=== PATIENT | female | born 1965 | race Caucasian/White ===

== ENCOUNTER 2022-03-28 04:17 | Emergency (ER) | payer OTHER, SELFPAY ==
[2022-03-28] VITALS (50 sets, daily range): BP systolic 101–144; BP diastolic 59–83; PULSE 74–106; RESP 5–26; TEMP 36.6–37.4; O2SAT 92–100
--- NOTE | 2022-03-28 04:45 | DI.RAD_ITS ---
Exam(s) XR PORTABLE CHEST AP EXAM: XR PORTABLE CHEST AP CLINICAL HISTORY: cough, wheeze, eval for pneumonia TECHNIQUE: 2D digital imaging was performed of the chest. One image was obtained. An AP view was ob tained. COMPARISON: No exams were available for comparison FINDINGS: MEDIASTINUM: Normal. HEART: Normal. PULMONARY VASCULATURE: Normal. LUNGS: Clear. PLEURAL SPACE: No pleural effusion or pneumothorax. BONE:Within normal limits for the patient's age. OTHER FINDINGS:Normal. IMPRESSION: No acute pulmonary findings. DATA REPOSITORY: RADIATION DOSE DELIVERED:
--- NOTE | 2022-03-28 04:59 | ED.GENADUL_ITS ---
Discharge Plan Disposition Patient Disposition: HOME Condition: Good Discharge Details Clinical Impression: RSV bronchitis, Community acquired pneumonia Primary Care Provider: Jadon Zarate ED Provider: Noah Schwarz Home Meds and New Rx's Prescriptions: New prednisone 50 mg tablet 50 mg PO DAILY Qty: 5 0RF doxycycline hyclate 100 mg tablet 100 mg PO BID Qty: 20 0RF Discharge Instructions Instructions: Community Acquired Pneumonia (ED) Additional Instructions: At this time your testing has returned positive for respiratory syncytial virus. This likely began your symptoms but now I believe you have a component of bacterial pneumonia. Please take the antibiotic as directed. Make sure to take it with food otherwise it will cause nausea and vomiting. Please avoid any dairy products while taking the medication or calcium supplements as this will decrease the effectiveness of the antibiotic. Please take the inhaler, 2 puffs every 12 hours for the next 7 days. Please take the steroid as directed to also help with your asthma/reactive airway disease. These medications have been sent to your pharmacy on file. If you notice any worsening of your symptoms, or any new symptoms such as vomiting, diarrhea, fever, chills, shortness of breath, chest pain, numbness, weakness, or fainting , please return immediately to the emergency department for reevaluation. Please follow up with your primary care provider as soon as possible for reassessment and reevaluation. As always, it was a pleasure participating in your medical care today. Referrals: Jadon Zarate, [employer] OFFICER [Primary Care Provider] - Medical Decision Making This is a pleasant 56-year-old female with no significant past medical who does smoke 5 cigarettes a day who presents today for evaluation of cough for the past week. She states there have been multiple other sick contacts at home. Her grandchild has RSV currently. She has taken a home COVID test and this was negative. She denies any hemoptysis. She denies any history of asthma or COPD. She does not have any inhalers at home. She denies any chest pain. She states the cough is worsening and not improving with time. She admits to intermittent chills but no fever. No other complaints at this time. No other modifying factors Physical exam demonstrates well-appearing female, oxygenation is in the mid to low 90s. Lung sounds demonstrate diffuse wheezes throughout. Patient otherwise stable. Suspect component of asthma in conjunction with potential bronchitis or pneumonia. We will give breathing treatment, give oral steroids, plan for Symbicort at home, test for flu/COVID/RSV, monitor closely and reassess 6:07 AM On reassessment patient feels much better. Wheezes have improved. Oxygenation remains excellent. Patient would like to go home. She feels comfortable. RSV is positive. Flu and COVID are negative. I suspect she still does have mild community-acquired pneumonia as well from a bacterial perspective. We will send a prescription of doxycycline and prednisone to her pharmacy. We will give Symbicort inhaler here. Patient stable for discharge. Discussed red flags which to return. I have extensively reviewed the treatment plan and discharge instructions with the patient. I have addressed all patient concerns at this time. The patient was made aware of what symptoms to monitor for that would warrant a return to the emergency department. Discussed the plan with the stacey choi, they demonstrate verbal understanding and agreement with our assessment and plan at this time. The documentation in this chart was dictated using [employer] dictation software. Please excuse any dictation errors. HPI General Date/Time Provider Initiated Documentation: 03/28/22 04:40 . HPI Narrative: This is a pleasant 56-year-old female with no significant past medical who does smoke 5 cigarettes a day who presents today for evaluation of cough for the past week. She states there have been multiple other sick contacts at home. Her grandchild has RSV currently. She has taken a home COVID test and this was negative. She denies any hemoptysis. She denies any history of asthma or COPD. She does not have any inhalers at home. She denies any chest pain. She states the cough is worsening and not improving with time. She admits to intermittent chills but no fever. No other complaints at this time. No other modifying factors Related Data Home Medications Medication Instructions Recorded Confirmed doxycycline hyclate 100 mg tablet 100 mg PO BID #20 tabs 03/28/22 prednisone 50 mg tablet 50 mg PO DAILY #5 tabs 03/28/22 Previous Rx's Medication Instructions Recorded doxycycline hyclate 100 mg tablet 100 mg PO BID #20 tabs 03/28/22 prednisone 50 mg tablet 50 mg PO DAILY #5 tabs 03/28/22 Allergies Allergy/AdvReac Type Severity Reaction Status Date / Time No Known Allergies Allergy Verified 03/28/22 04:34 General Stated Complaint: RespSymp SHAWNA: 3 Review of Systems All systems reviewed & are unremarkable except as noted in HPI and below PFSH All Active Problems (Updated 03/28/22 @ 05:54 by Noah Schwarz DO) RSV bronchitis (Acute) Community acquired pneumonia (Acute) Obesity (BMI 30.0-34.9) (Acute) Surgical History History of tonsillectomy Family History Mother Depression Heart disease Father Depression Hypertension Sister Depression Sister Depression Son No problems noted. Son No problems noted. Son No problems noted. Social History Smoking/Tobacco Use Status: Current-Occasional Tobacco Type: cigarettes Tobacco: How many years used: 6 Quit status: not considering quitting Second Hand Exposure: Yes Smoking risk assessment performed?: Yes Alcohol Intake: current Alcohol Intake frequency: holidays/special occasions only Alcohol type: wine Drug use: Never Substance use type: does not use Caregiver/Support person: No Household members: spouse Housing: house Communication Needs: None Pets and animals: Yes Pets and animals: dog(s) and farm animals Sexually active: Yes Do you think of yourself as: straight/heterosexual Current gender identity: female What is your relationship status?: How often do you talk on the phone with friends or family?: three or more times per week How often do you attend orthodoxy or anabaptism services?: decline to answer Do you belong to any clubs or organized social groups?: no Panel score (0-1 are the most socially isolated patients): 2 What type of physical activity do you participate in: walking Duration: 15-30 minutes/day Frequency: 1-2 times per week Tea/Sikhism: Islam Special tea needs: No Seatbelt use: always Drive intox or ride w/intox dedicated truck driver: No Do you feel safe at home: Yes Do you feel safe in your relationship?: Yes Exam Narrative Exam Narrative: 1.Const: Well-nourished, Well-developed, appearing stated age 2.Eyes: PERRL, no conjunctival injection, and symmetrical lids. 3.ENT: Atraumatic external nose and ears. Moist MM. Neck: Symmetric, trachea midline, No thyromegaly. 4.CVS: +S1/S2, No murmurs or gallops. Peripheral pulses 2+ and equal in all extremities. Brisk capillary refill in all extremities. 5.RESP: Diffuse wheezes throughout, no significant rhonchi or rales 6.GI: Soft, Nontender/Nondistended, No hepatosplenomegaly. No guarding or rebound. 7.MSK: Normocephalic/Atraumatic, Extremities w/o deformity or ttp No cyanosis or clubbing, Normal movement of all extremities 8.Skin: Warm, Dry. No rashes or lesions. 9.Neuro: economic analysis director II-XII grossly intact. Sensation grossly intact, no focal neurologic deficits. 10.Psych: (AAO) x3. Appropriate mood and affect Course Vital Signs Vital signs: Vital Signs Temperature 37.4 C 03/28/22 04:34 Pulse 100 H 03/28/22 04:34 Respiratory Rate 26 H 03/28/22 04:34 Blood Pressure 144/81 H 03/28/22 04:34 Temperature 37.4 C 03/28/22 04:34 Temperature Source Temporal Artery Scan 03/28/22 04:34 Pulse 100 H 03/28/22 04:34 Respiratory Rate 26 H 03/28/22 04:34 Respiratory Effort Non-Labored 03/28/22 04:41 Respiratory Depth Normal 03/28/22 04:41 Blood Pressure 144/81 H 03/28/22 04:34 Blood Pressure Position Sitting 03/28/22 04:34 Oxygen Delivery Method Room Air 03/28/22 04:34 Oxygen Flow Rate 0 03/28/22 04:34 Pain Level 3 03/28/22 04:34 PAWSS Have you Been Recently Intoxicated or Drunk Within the Last 30 days?: Yes Have you Ever Experienced Previous Episodes of Alcohol Withdrawal?: No Have you ever Experienced Withdrawal Seizures?: No Have you ever Experienced Delirium Tremens(DT)s?: No Have you ever undergone Alcohol Rehabilitation Treatment (i.e, inpt ot outpatient treatment programs)?: No Have you ever Experienced Blackouts?: No Have you ever Combined Alcohol with other Downers within the last 90 days?: No Have you ever Combined Alcohol with any other Substance of Abuse during the last 90 days?: No Positive Blood Alcohol level on Presentation? [PCS.BAL]: No Evidence of Increased Autonomic Activity (i.e. HR>120, tremor, sweating, agitation, nausea)?: No Result: 1
[2022-03-28] MEDS: Albuterol/Ipratropium 3 ML UPD VIAL UPD (05:12)
[2022-03-28] MEDS: predniSONE 20 MG TAB 60 MG PO (05:13)
[2022-03-28 05:43] LABS: COVID-19 PCR Negative (Negative); Influenza A PCR Negative (Negative); Influenza B PCR Negative (Negative)
[2022-03-28 05:46] LABS: Source Nasopharynx
[2022-03-28 05:48] LABS: RSV PCR Positive (Negative)
[2022-03-28] MEDS: Budesonide/Formoterol 160/4.5 6 GM 60 PUFF INH IH (05:56)
--- NOTE | 2022-03-28 06:16 | DI.VRAD_ITS ---
PROCEDURE INFORMATION: Exam: XR Chest Exam date and time: 03/28/2022 4:51 AM Age: 56 years old Clinical indication: Cough and wheezing and other: Cough, wheeze, eval for pneumonia TECHNIQUE: Imaging protocol: Radiologic exam of the chest. Views: 1 view. COMPARISON: No relevant prior studies available. FINDINGS: Lungs: No pneumonia. No pulmonary edema. Pleural spaces: No pleural effusion. No pneumothorax. Heart/Mediastinum: Cardiac size not enlarged. Central vessels unremarkable. Vasculature: Aorta normal caliber. Bones/joints: Visualized osseous structures are unremarkable. IMPRESSION: No acute intrathoracic process Dictated and Authenticated by: Pelon Miguel MD. Ordering:MARISSA Zamora MD
== END 2022-03-28 06:08 | disposition home or self-care (01) ==
PROVIDERS: Emergency Provider Student in an Organized Health Care Education/Training Program; PCP Nurse Practitioner Family
DX: J20.5 Acute bronchitis due to respiratory syncytial virus (principal); J18.9 Pneumonia, unspecified organism; F17.210 Nicotine dependence, cigarettes, uncomplicated; Z20.822 Contact with and (suspected) exposure to COVID-19
CPT/HCPCS: 87637; 94640; 99284; 71045; J7512; J7620

== ENCOUNTER 2023-06-29 06:57 | Day surgery (SDC) | payer OTHER, SELFPAY ==
--- NOTE | 2023-06-28 10:28 | W.COLOREPORT ---
Date of service: 06/29/23 Time of Service: 08:54 Colonoscopy Report Date of procedure: 06/29/23 Pre-op diagnosis general: Colorectal cancer screening Post-op diagnosis procedure note: other (External hemorrhoids) Surgeon: Dayan Padron Anesthesia Type: General LMA/ETT Estimated blood loss (mL): 0 Pathology: none sent Complications: None Disposition: same day Prep: Miralax/Dulcolax Retraction Time: 11 Procedure Description: After informed consent was obtained the patient was taken to the procedure room and placed in a left decubitous position. Monitors were applied and a time out was done. The patients name, date of , procedure, allergies to medications and metal in their body was reviewed. The patient was then sedated. Once sedated and comfortable a rectal exam was done. External exam: Small nonthrombosed external hemorrhoid internal exam revealed a normal sphincter tone and no palpable masses. The scope was then introduced and retrofelexed. No internal hemorrhoids were identified. The scope was then advanced to the cecum without difficulty. The TI and appendiceal orifice were identified. The prep was BBPS 3 in all segments for a total of 9. The scope was then slowly retracted over 11 minutes back into the rectum. There are no polyps/AVM/diverticula visualized today. The mucosa is pink and healthy with a normal vascular pattern. The scope was removed and the patient was woken up and taken back to Same day surgery in stable condition. The patient tolerated the procedure well and there were no immediate complications. Follow up: The patient should follow up in 10 years unless they develop changes in bowel habits or other new gastrointestinal complaints.
--- NOTE | 2023-06-28 10:29 | PDOC.DSDIS_ITS ---
Date of service: 06/29/23 Time of Service: 08:56 Discharge Plan Disposition Patient Disposition: Home Condition: Good Discharge Details Reason For Visit: Colorectal cancer screening Attending Provider: Dayan Padron Primary Care Provider: Jadon Zarate Home Meds and New Rx's Prescriptions: Discontinued bisacodyl [Dulcolax (bisacodyl)] 5 mg tablet,delayed release (DR/EC) 5 mg PO ONCE Qty: 4 0RF Rx Instructions: Take per colonoscopy instructions provided by ordering providers office polyethylene glycol 3350 17 gram/dose powder 17 g PO ONCE Qty: 238 0RF Rx Instructions: Take per colonoscopy instructions provided by ordering providers office Discharge Instructions Additional Instructions: DSU Colonoscopy Post- Op Instructions Instructions for Everyone who is given Anesthesia: For your safety, please do the following for the next twenty-four (24) hours: *Do Not operate a motor vehicle (car, truck, motorcycle, etc.) *Do Not drink alcoholic beverages or use any recreational drugs for the first 24 hours or while taking pain medications. The medications in your body may have a reaction that can be dangerous. *Do Not make any important decisions or sign any important papers. Findings: normal scope Follow up: Repeat in 10 yrs time. Of course, you should continue to have a yearly physical exam including a rectal exam. If you should ever notice any pain or difficulty having a bowel movement, blood in the stool, unexplained weight loss, or change in your bowel habits, please contact your health provider 1. No lifting over 20 pounds or strenuous activity for the first 24 hours after your procedure. After 24 hours there are no restrictions on your activity but you may feel fatigued for a few days. 2. After you arrive home you may have a light meal and return to your normal diet as you can tolerate it without feeling sick to your stomach. 3. You may have a bloated, gaseous feeling in your belly (abdomen) after a colonoscopy. Passing gas and belching will help. Walking or lying down on your left side with your knees flexed may relieve the discomfort. Call the office at [phone] (Office) or [phone] (Hospital) right away if you notice any of the following: a.Vomiting of blood or ?coffee ground stools?. b.Rectal bleeding 1Tbsp, blood clots or continuous bleeding. c.Severe belly (abdominal) pain. d.A hard distended belly (abdomen) and an inability to pass gas. 4. Please don?t expect to have a normal BM (bowel movement) for 2-3 days after your procedure. 5. If there are questions regarding the findings of your procedure, please contact your doctor 6. If you are unable to contact your doctor with a problem, contact the hospital at [phone]. 7. Continue all your regular medications unless directed otherwise. I understand the above instructions and have no questions. Signature of Patient or Adult Escort Name of Responsible Adult Escort Signature of Nurse Date/Time Activity:: See above Diet:: see above Discharge Orders Discharge Orders: Discharge Order (Routine); Ordered 06/29/23 Ordered By: Dayan Padron DS: Diagnosis Discharge Diagnosis (1) Screening for malignant neoplasm of colon performed: Status: Acute (2) Obesity (BMI 30.0-34.9): Status: Acute (3) External hemorrhoid: Status: Acute
[2023-06-29 07:24] VITALS: BP 145/89; PULSE 90; RESP 16; TEMP 36.7; O2SAT 97
[2023-06-29] MEDS: Lactated Ringers 1,000 ML 80 ML IV (07:27)
--- NOTE | 2023-06-29 08:17 | ANES.PREOP_ITS ---
General Info Date of Service Date Performed: 06/29/23 Height: 5 ft 4 in Weight: 87.8 kg Body Mass Index (BMI): 33.2 Surgical Procedure: Operation Date: 06/29/23 08:20 Proposed Procedure Side Surgeon annetta Padron DO Meds Allergies and Home Medications Allergies Allergy/AdvReac Type Severity Reaction Status Date / Time No Known Allergies Allergy Verified 06/29/23 07:11 Current Visit Medications: Current Medications Generic Name Dose Route Start Last Admin Trade Name Freq PRN Reason Stop Dose Admin Hyoscyamine Sulfate 0.125 mg 06/29/23 03:38 Hyoscyamine 0.125 Mg Sl/Oral/Chew SL 07/29/23 03:37 DIRECTED PRN Ringer's Solution 1,000 mls @ 80 mls/hr 06/29/23 06:00 06/29/23 07:27 IV 06/29/23 23:59 80 mls/hr INFUSION GRACE Administration IV Miscellaneous Supplies 1 each 06/29/23 06:00 Iv Access IV 06/29/23 23:59 DIRECTED GRACE Ondansetron HCl 4 mg 06/29/23 03:38 Ondansetron 4 Mg/2 Ml Vial IVP 07/29/23 03:37 Q4H PRN PRN Nausea / Vomiting Sodium Chloride 0 ml 06/29/23 06:00 Normal Saline Flush 10 Ml Syr IV 06/29/23 23:59 PRN PRN Sodium Chloride 0 ml 06/29/23 06:00 Normal Saline 10 Ml Vial IJ 06/29/23 23:59 DIRECTED PRN Sterile Water 0 ml 06/29/23 06:00 Water,Injection,Sterile 10 Ml Vial IJ 06/29/23 23:59 DIRECTED PRN PFSH Active Problems Active Problems: Problem Status Onset Code Screening for malignant neoplasm of colon performed Z12.11 Obesity (BMI 30.0-34.9) E66.9 Surgical History Surgical History History of tonsillectomy Tobacco Smoking/Tobacco Use Status: Current-Occasional Tobacco Type: cigarettes and e- cigarettes Passive smoking exposure: Yes Second hand exposure: Yes Alcohol Alcohol Intake: never Substance Use Substance use: Never Substance use type: does not use Vital Signs and Lab Results Vital Signs Most Recent Vital Signs in EMR: Most Recent Vital Signs Temp Pulse Resp BP Pulse Ox 36.7 C 90 16 145/89 H 97 06/29/23 07:24 06/29/23 07:24 06/29/23 07:24 06/29/23 07:24 06/29/23 07:24 Lab Results Blood Type / Crossmatch: No Data to Display Complete Blood Count: No Data to Display Complete Metabolic Panel: No Data to Display Liver Function Panel: No Data to Display Coagulation Panel: No Data to Display Cardiac Panel: No Data to Display Arterial Blood Gas: No Data to Display Venous Blood Gas: No Data to Display Pancreas Panel: No Data to Display Thyroid Panel: No Data to Display Infectious Disease: No Data to Display Blood Cultures: No Data to Display Toxicology Panel: No Data to Display Anesthesia Assessment and Plan Anesthesia History Personal History: No History of Anesthesia Complications Family History: No Family History of Anesthesia Complications Exercise Tolerance Exercise Tolerance: Metabolic Equivalents>4 Pertinent Negatives Pertinent Negatives: No Symptoms of GERD Cardiac & Pulmonary Exam Cardiac Exam: Normal S1/S2 Heart Sounds Pulmonary Exam: Clear Bilateral Breath Sounds Implantable Cardiac Device Does patient have a Pacemaker or an ICD?: No Airway Exam Known Difficult Airway: No Mallampati Class: 2 Mouth Opening: Normal (> 3cm) Thyromental Distance: Greater than 3 cm Neck Range of Motion: Full ROM Neck Circumference: Normal Teeth Condition: Normal Dentition ASA Classification ASA Score: ASA 2 Emergency Case?: No NPO Status NPO Status: NPO Clears >2 hours, Solids >8 hours Anesthesia Plan Resuscitation Status: Full Code Anesthesia Technique: General Anesthesia Airway Planned: Natural Airway Monitors Used: Standard Monitors
[2023-06-29 08:18] VITALS: BMI 33.2
[2023-06-29 08:50] VITALS: BP 107/76; PULSE 87; RESP 16; TEMP 36.5; O2SAT 95
--- NOTE | 2023-06-29 08:52 | W.ANESPOSTOP ---
Postoperative Evaluation Date, Time and Location Date Performed: 06/29/23 Time Performed: 08:53 Patient Location: Day Surgery Unit Vital Signs Most Recent Imported Vital Signs: Most Recent Vital Signs Temp Pulse Resp BP Pulse Ox 36.7 C 90 16 145/89 H 97 06/29/23 07:24 06/29/23 07:24 06/29/23 07:24 06/29/23 07:24 06/29/23 07:24 Pain Score Most Recent Pain Score: Most Recent Pain Score Pain Level 0 06/29/23 07:24 Assessment Mental Status: Awake (Alert & Oriented to Patient Baseline) Airway and Respiratory Function: Patent airway with normal (patient baseline) respiratory exam Cardiovascular Function: Hemodynamically Stable Hydration Status: Adequately Hydrated Nausea & Vomiting: No Nausea or Vomiting Pain: Pt. Denies Any Pain Peripheral Nerve Block: Patient did not receive a nerve block
[2023-06-29 09:20] VITALS: BP 177/77; PULSE 64; RESP 18; TEMP 36.5; O2SAT 97
== END 2023-06-29 09:45 | disposition home or self-care (01) ==
LOC: SUR 06:58
PROVIDERS: PCP Nurse Practitioner Family; Visit Provider Surgery
PROC: 0DJD8ZZ Inspection of Lower Intestinal Tract, Via Natural or Artificial Opening Endoscopic (ICD-10-PCS; CPT 45378; principal; 2023-06-29 08:15)
DX: Z12.11 Encounter for screening for malignant neoplasm of colon (principal); K64.4 Residual hemorrhoidal skin tags; E66.9 Obesity, unspecified
CPT/HCPCS: 45378; J2704

== ENCOUNTER 2024-06-13 09:21 | Outpatient (REF) | payer OTHER, SELFPAY ==
--- NOTE | 2024-06-13 09:00 | PAPFT_PTH ---
PATIENT: Mendy Morgan LOC: [facility] U#:[id number] AGE/SX: 58/F ROOM: RE06/13/[address]: [place] Leonardo DO : 1965 BED: DIS: 06/13/2024 SPEC #: [id number] RECD: 06/13/24 13:16 STATUS: MOY REQ #: [id number] APURVA: 06/13/24 09:[address]: Albania Leonardo DEPT: [facility] Cytology RECD BY: Roxy Boyd ENTERED: 06/13/24 13:16 SP TYPE: PAPFT OTHR DR: Jadon Zarate, ADÁN Tissues: 1 - CX/ENDOCX FOR PAP SMEARS Procedures: PAP THIN PREP/[facility] Screening HPV DNA PROBE Comments: [id number] (HPV 16 & 18/45)
== END 2024-06-13 09:22 | disposition home or self-care (01) ==
LOC: LBN 09:21
PROVIDERS: PCP Nurse Practitioner Family; Visit Provider Obstetrics & Gynecology
DX: Z12.39 Encounter for other screening for malignant neoplasm of breast (principal); Z01.419 Encounter for gynecological examination (general) (routine) without abnormal findings
CPT/HCPCS: 88142; 87624

== ENCOUNTER 2024-07-04 00:50 | Outpatient (CLI) | payer OTHER, SELFPAY ==
--- OUTSIDE RECORDS SUMMARY | 2024-07-04 00:55 | XMS_ITS | Encounter Summary ---
Author Organization [facility] Address [address] [place] [address] Care Team Providers Care Volcanology Teacher Name Role Phone Unavailable Primary Care Provider Unavailabl e Encounter Details Date Type Department Care Team (Late st Contact Info) Description 06/17/2024 Lab Requisition [facility] Pathology & Laboratory Medicine - [facility] [address] [place] [address] [place]ia Leonardo [address] [place] [address] [place] [address] Encounter for other general examination Social History Tobacco Use Types Packs/Day Years Used Date Smoking Tobacco: Never Assessed Comments Unknown Sex and Gender Information Value Date Recorded Sex Assigned at Not on file Legal Sex Female 9:50 EST Gender Identity Not on file Sexual Orientation Not on file documented as of this encounter Plan of Treatment Not on file documented as of this encounter Procedures Procedure Name Priority Date/Time Associated Diagnosis Comments PAP TEST Today 06/13/2024 9:00 EST Encounter for other general examination HPV DNA DETECTION WITH GENOTYPING, PCR Today 06/13/2024 9:00 EST Encounter for other general examination documented in this encounter Results * HPV DNA DETECTION WITH GENOTYPING, PCR (06/13/2024 9:00 EST) HPV High Risk type 16, PCR Negative Negative 06/19/2024 15:11 EST [facility] HPV High Risk type 18, PCR Negative Negative 06/19/2024 15:11 EST [facility] HPV other High Risk types, PCR Negative Negative 06/19/2024 15:11 EST [facility] Comment: The following Other High Risk HPV types were not detected: ??31,33, 35, 39, 45, 51, 52, 56, 58, 59, 66 and 68. Pap Test CERVIX UTERI STRUCTURE / Unknown 06/13/2024 9:00 EST 06/18/2024 13:14 EST us [place] Leonardo MICROBIOLOGY - GENERAL ORDERABLE S Final Result [facility] [address] [place] [address] * PAP TEST (06/13/2024 9:00 EST) Specimens A. Cervix and/or Endocervix , ThinPrep Imaging System with Manual Evaluation 06/19/2024 15:11 [facility] Specimen Adequacy Satisfactory for Evaluation - transformation zone component present 06/19/2024 15:11 [facility] General Categorization Negative for intraepithelial lesion or malignancy 06/19/2024 15:11 [facility] Attestation . 06/19/2024 15:11 [facility] at 1511 Clinical History See below 06/19/19 15:11 [facility] Performing Lab [facility] 06/19/2024 15:11 [facility] Scanned Images 06/19/2024 15:11 [facility] HPV High Risk type 16, PCR Negative 06/19/2024 15:11 [facility] HPV High Risk type 18, PCR Negative 06/19/2024 15:11 [facility] HPV Other High Risk Types, PCR Negative The following Other High Risk HPV types were not detected: 31,33, 35, 39, 45, 51, 52, 56, 58, 59, 66 and 68. 06/19/2024 15:11 [facility] Pap Test CERVIX UTERI STRUCTURE / Unknown 06/13/2024 9:00 EST 06/17/2024 9:52 EST us [place] Leonardo PATHOLOGY ORDERABLES Final Resul t [facility] [address] [place] [address] documented in this encounter Visit Diagnoses Diagnosis Encounter for other general examination documented in this encounter
--- OUTSIDE RECORDS SUMMARY | 2024-07-04 00:55 | XMS_ITS | Referral Summary ---
Author Organization [facility] Address [address] [place] [address] Care Team Providers Care Tier Truck Driver Name Role Phone Unavailable Primary Care Provider Unavailabl e Encounters Date Type Department Care Team Description 06/17/2024 Lab Requisition [facility] Pathology & Laboratory Medicine - [facility] [address] [place] [address] [place] Leonardo Encounter for other general examination from Last 3 Months Social History Tobacco Use Types Packs/Day Years Used Date Smoking Tobacco: Never Assessed Comments Unknown Sex and Gender Information Value Date Recorded Sex Assigned at Not on file Legal Sex Female 9:50 EST Gender Identity Not on file Sexual Orientation Not on file Plan of Treatment Not on file Procedures Procedure Name Priority Date/Time Associated Diagnosis Comments PAP TEST Today 06/13/2024 9:00 EST Encounter for other general examination HPV DNA DETECTION WITH GENOTYPING, PCR Today 06/13/2024 9:00 EST Encounter for other general examination from Last 3 Months Results * PAP TEST (06/13/2024 9:00 EST) Specimens A. Cervix and/or Endocervix , ThinPrep Imaging System with Manual Evaluation 06/19/2024 15:11 [facility] Specimen Adequacy Satisfactory for Evaluation - transformation zone component present 06/19/2024 15:11 [facility] General Categorization Negative for intraepithelial lesion or malignancy 06/19/2024 15:11 [facility] Attestation . 06/19/2024 15:11 [facility] at 1511 Clinical History See below 06/19/19 15:11 [facility] Performing Lab [facility] 06/19/2024 15:11 [facility] Scanned Images 06/19/2024 15:11 [facility] HPV High Risk type 16, PCR Negative 06/19/2024 15:11 [facility] HPV High Risk type 18, PCR Negative 06/19/2024 15:11 [facility] HPV Other High Risk Types, PCR Negative The following Other High Risk HPV types were not detected: 31,33, 35, 39, 45, 51, 52, 56, 58, 59, 66 and 68. 06/19/2024 15:11 [facility] Pap Test CERVIX UTERI STRUCTURE / Unknown 06/13/2024 9:00 EST 06/17/2024 9:52 EST us [place] Leonardo PATHOLOGY ORDERABLES Final Resul t Performing Organization Address [facility] Co de Phone Number [facility] [address] [place] [id number] * HPV DNA DETECTION WITH GENOTYPING, PCR (06/13/2024 9:00 EST) HPV High Risk type 16, PCR Negative Negative 06/19/2024 15:11 [facility] HPV High Risk type 18, PCR Negative Negative 06/19/2024 15:11 [facility] HPV other High Risk types, PCR Negative Negative 06/19/2024 15:11 [facility] Comment: The following Other High Risk HPV types were not detected: ??31,33, 35, 39, 45, 51, 52, 56, 58, 59, 66 and 68. Pap Test CERVIX UTERI STRUCTURE / Unknown 06/13/2024 9:00 EST 06/18/2024 13:14 EST us [place] Leonardo MICROBIOLOGY - GENERAL ORDERABLE S Final Result Performing Organization Address [facility]/ZIP Co de Phone Number [facility] [address] [place] [address] from Last 3 Months
--- OUTSIDE RECORDS SUMMARY | 2024-07-04 00:55 | XMS_ITS | Clinical Summary ---
Author Organization [facility] Address [address] [place] [address] Care Team Providers Care Furniture Delivery Driver Name Role Phone Unavailable Primary Care Provider Unavailabl e Encounters Date Type Department Care Team Description 06/17/2024 Lab Requisition [facility] Pathology & Laboratory Medicine - [facility] [address] [place] [address] [place] Leonardo Encounter for other general examination from Last 3 Months Social History Tobacco Use Types Packs/Day Years Used Date Smoking Tobacco: Never Assessed Comments Unknown Sex and Gender Information Value Date Recorded Sex Assigned at Not on file Legal Sex Female 9:50 EST Gender Identity Not on file Sexual Orientation Not on file Plan of Treatment Health Maintenance Due Date Last Done Comments Hepatitis C Screen 1965 COVID-19 Vaccine (2023- season) 2024 RSV Immunization ( o r 60+ Years) (1 - 1-dose 75+ series) 12/09/2038 Procedures Procedure Name Priority Date/Time Associated Diagnosis Comments PAP TEST Today 06/13/2024 9:00 EST Encounter for other general examination HPV DNA DETECTION WITH GENOTYPING, PCR Today 06/13/2024 9:00 EST Encounter for other general examination from Last 3 Months Results * PAP TEST (06/13/2024 9:00 EST) Specimens A. Cervix and/or Endocervix , ThinPrep Imaging System with Manual Evaluation 06/19/2024 15:11 [facility] Specimen Adequacy Satisfactory for Evaluation - transformation zone component present 06/19/2024 15:11 [facility] General Categorization Negative for intraepithelial lesion or malignancy 06/19/2024 15:11 [facility] Attestation . 06/19/2024 15:11 [facility] at 1511 Clinical History See below 06/19/19 15:11 [facility] Performing Lab [facility] 06/19/2024 15:11 [facility] Scanned Images 06/19/2024 15:11 [facility] HPV High Risk type 16, PCR Negative 06/19/2024 15:11 [facility] HPV High Risk type 18, PCR Negative 06/19/2024 15:11 [facility] HPV Other High Risk Types, PCR Negative The following Other High Risk HPV types were not detected: 31,33, 35, 39, 45, 51, 52, 56, 58, 59, 66 and 68. 06/19/2024 15:11 [facility] Pap Test CERVIX UTERI STRUCTURE / Unknown 06/13/2024 9:00 EST 06/17/2024 9:52 EST [employer]orden PATHOLOGY ORDERABLES Final Resul t [facility] [address] [place] [address] * HPV DNA DETECTION WITH GENOTYPING, PCR (06/13/2024 9:00 EST) HPV High Risk type 16, PCR Negative Negative 06/19/2024 15:11 [facility] HPV High Risk type 18, PCR Negative Negative 06/19/2024 15:11 [facility] HPV other High Risk types, PCR Negative Negative 06/19/2024 15:11 [facility] Comment: The following Other High Risk HPV types were not detected: ??31,33, 35, 39, 45, 51, 52, 56, 58, 59, 66 and 68. Pap Test CERVIX UTERI STRUCTURE / Unknown 06/13/2024 9:00 EST 06/18/2024 13:14 EST us [place] Leonardo MICROBIOLOGY - GENERAL ORDERABLE S Final Result [facility] [address] [place] [address] from Last 3 Months
--- NOTE | 2024-07-04 12:32 | DI.MAMMO_ITS ---
Exam(s) MAMMO SCREENING EXAM: MAMMO SCREENING CLINICAL HISTORY: screening. TECHNIQUE: Bilateral full field digital CC and MLO mammographic images were obtained with 3D tomosyn thesis and utilizing computer aided detection (CAD). COMPARISON: Prior outside mammograms were reviewed. Prior outside ultrasound reviewed FINDINGS: No new significant mammographic findings in the right breast In the left breast on the MLO view there is a E is round nodular density measuring 10 x 11 mm and loc ated approximately 7 cm in from the nipple. This has decreased in size from prior outside mammograms and most probably corresponds to 1 of this cyst described on prior outside ultrasound. There are no new spiculated masses nor new malignant appearing microcalcification groups. There is no significant architectural distortion nor skin thickening-retraction. IMPRESSION: Benign findings. No radiographic evidence of malignancy. BI-RADS Category 2 - Benign Findings Breast Density - Category B - Scattered areas of fibroglandular density Breast density Category C or D implies that the patient has dense breast tissue. Dense breast tissue can make it harder to find cancer on a mammogram. Dense breast tissue is also associated with an incr eased risk of breast cancer. This information about the result of the mammogram report was provided to the patient to raise their awareness. Use this report when you speak with the patient about their risks for breast cancer, which includes their family history. At that time, you may recommend additional screening tests (Ultrasoun d or MRI) as these tests may add significant information. A negative radiographic report should not delay biopsy if a dominant or clinically suspicious mass is present. Up to ten percent of cancers are not identified on mammography. A negative report may reinforce clinical impression. Adenosis and dense breasts may obscure an underlying neoplasm. False positive reports average 6 to 10%. Patient will receive a letter notifying them of these results.
== END 2024-07-04 01:10 ==
LOC: DI 00:50
PROVIDERS: PCP Nurse Practitioner Family; Visit Provider Obstetrics & Gynecology
DX: Z12.31 Encounter for screening mammogram for malignant neoplasm of breast (principal); R92.323 Mammographic fibroglandular density, bilateral breasts; D24.2 Benign neoplasm of left breast
CPT/HCPCS: 77063; 77067

== ENCOUNTER 2024-07-31 14:58 | Outpatient (CLI) | payer OTHER, SELFPAY ==
--- NOTE | 2024-07-31 14:58 | DI.RAD_ITS ---
Exam(s) XR CHEST 2V PA LATERAL EXAM: XR CHEST 2V PA LATERAL CLINICAL HISTORY: R05.9 Cough, R/O pneumonia TECHNIQUE: 2D digital imaging was performed of the chest. Two images were obtained. PA and lateral views were obtained. COMPARISON: CR,XR XR PORTABLE CHEST AP from 03/28/2022 FINDINGS: MEDIASTINUM: Normal. HEART: Normal. PULMONARY VASCULATURE: Normal. LUNGS: There is a left lingular infiltrate. PLEURAL SPACE: No pleural effusion or pneumothorax. BONE:Within normal limits for the patient's age. OTHER FINDINGS:Normal. IMPRESSION: Left lingular infiltrate. DATA REPOSITORY: RADIATION DOSE DELIVERED:
== END 2024-07-31 15:18 ==
LOC: DI 14:58
PROVIDERS: PCP Nurse Practitioner Family; Visit Provider Nurse Practitioner Family
DX: R05.9 Cough, unspecified (principal); R91.8 Other nonspecific abnormal finding of lung field
CPT/HCPCS: 71046